=== PATIENT | female | born 1960 | race Caucasian/White ===

== ENCOUNTER → 2016-12-10 | Outpatient (CLI) | payer BC ==
[~2016-12-10] MED LIST: CHOL100027 PO; LISI-725 PO; OMEGCAP2 PO
--- NOTE | 2016-12-10 08:57 | DIAGNOSTIC IMAGING REPORT ---
THYROID ULTRASOUND CLINICAL HISTORY: THYROID MASS, THYROMEGALY COMPARISON STUDY: None. TECHNIQUE: Sonography of the thyroid gland was performed. FINDINGS: The thyroid gland is mildly enlarged and heterogeneous. The right lobe measures 5.3 x 2.1 x 1.8 cm and the left lobe measures 5.2 x 1.7 x 2 cm. The isthmus measures 0.6 cm in thickness. Differentiation between heterogeneous parenchyma and thyroid nodules is difficult but no definite nodules are identified. IMPRESSION: 1. Mildly enlarged, heterogeneous thyroid gland. 2. No discrete thyroid nodules identified. Electronically signed by: David Thapa M.D. 12/10/2016 8:56 AM Dictated Date/Time: 12/10/2016 8:55 AM
== END | disposition home or self-care (01) ==
LOC: C.ULTR 08:31
PROVIDERS: ATTEND Physician Assistant
DX: E04.1 Nontoxic single thyroid nodule (principal)

== ENCOUNTER 2023-04-17 12:30 | Inpatient (IN) ==
[2023-04-17] MEDS ORDERED: fentaNYL citrate PF 100 MCG/2 ML VIAL IV STA (12:42)
--- NOTE | 2023-04-17 12:45 | Emergency Department Note ---
Impression & Plan Abdominal pain, left upper quadrant, Elevated procalcitonin, Leukocytosis, Non- ST elevation [place] (NSTEMI) ED Provider Note HISTORY OF PRESENT ILLNESS: Patient is a 63-year-old female presenting with acute onset of left upper quadrant abdominal pain. Patient reports that the pain started acutely early this morning when her was attempting to lift her up to transfer her. Tad ewing describes the pain as sharp in nature and constant since onset. She reports of associated shortness of breath. Denies any chest pain. Denies any nausea or vomiting. Does report an episode of diarrhea with some blood in it earlier today. She is on anticoagulation for previous history of blood clot. Reports her legs have been very swollen over the last few days but she has been taking her Lasix as prescribed. Denies any fevers. Patient denies any falls or trauma to the abdomen or left chest. ROS: as above PHYSICAL EXAM: Constitutional: Patient appears in no acute distress. HENT: Head: Normocephalic and atraumatic. Eyes: EOMI, PERRL Mouth/Throat: Mucous membranes moist. Neck: Trachea midline. Neck supple. Cardiovascular: RRR, No murmurs, rubs or gallops. Intact distal pulses. Pulmonary/Chest: No respiratory distress. Breath sounds clear and equal bilaterally. No wheezes or rales. Abdominal: Abdomen soft, no rebound or guarding. LUQ TTP Musculoskeletal: No tenderness or deformity noted. +3 pitting edema bilaterally extending above knees. Skin: Warm and dry. No rash, erythema, pallor or cyanosis Psychiatric: Appropriate mood and affect for situation. Neurological: Alert and keenly responsive. CN II-XII grossly intact, moving all extremities equally and fully. MDM: - Vitals signs stable. - History obtained via patient. Patient presents with left upper quadrant abdominal pain. Patient reports that earlier this morning she started having significant pain in her left upper quadrant while her was helping to get her up out of a chair. Describes the pain as sharp and constant in nature. Reports associated shortness of breath. Denies any chest pain, nausea or vomiting. Does report some diarrhea with some blood tinge to earlier today. She is on anticoagulation for history of blood clot. - Chronic conditions affecting care: renal cell carcinoma - Differential diagnoses include, but are not limited to: splenic infarction; pneumonia; diverticulitis; ACS; pulmonary edema - Order placed for continuous cardiac monitoring. At this time, monitor showed rate of 94 bpm with normal sinus rhythm, per my interpretation. - External medical records reviewed. EMS run sheet was reviewed. Patient was given 50 mcg of IV fentanyl for pain management prehospital. - EKG reviewed by myself showed normal sinus rhythm. Rate 96 bpm. QTc 396. No acute ischemic changes. - Laboratory workup interpreted by myself showed leukocytosis (WBC 16.15) with left shift; elevated procalcitonin (3.29); elevated creatinine (Cr 1.26); elevated lactate (3.2); elevated troponin (14.5); transaminitis (AST 264; ALT 126); normal lipase; normal BNP - CXR negative for pneumonia, per my interpretation - CT abdomen/pelvis with IV contrast showed large heterogeneous right renal mass consistent with RCC. Also noted to have large hepatic metastases with the left lobe lesion increased in size with evidence of central necrosis. - Patient given 50 mcg IV fentanyl in ER. - Given 2L NS for sepsis coverage based on ideal body weight. - IV vancomycin and cefepime ordered, given leukocytosis and elevated procalcitonin - Transaminitis likely secondary to liver metastases. - UA ordered - Discussion was had with rn social work about patient's case and need for admission - Hospitalist consulted for admission - [facility] for further evaluation and management. 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 Beliefs That Will Affect Care: None Current Living Situation: Spouse Feels Safe at Home: Yes Assistive Devices: None Allergies Allergies Allergy/AdvReac Type Severity Reaction Status Date / Time No Known Allergies Allergy Unverified 04/05/23 19:16 Home Meds Home Medications Medication Instructions Recorded Confirmed multivitamin 1 tab PO DAILY 04/05/23 04/17/23 timolol maleate 0.5 % eye drops 1 drp OPB QAM 04/05/23 04/17/23 apixaban 5 mg (74 tabs) tablets in See Rx Instructions .Route .COMPLEX 04/17/23 04/17/23 a dose pack (Eliquis) atorvastatin 10 mg tablet 10 mg PO HS 04/17/23 04/17/23 furosemide 40 mg tablet 40 mg PO DAILY PRN Fluid Retention 04/17/23 04/17/23 lisinopril 10 mg tablet 10 mg PO QAM 04/17/23 04/17/23 Previous Rx's Medication Instructions Recorded oxycodone 5 mg tablet 5 mg PO DAILY PRN pain #7 tabs 03/30/23 Results & Data (ED) Vital Signs Vital Signs - 24 hr 04/17/23 12:50 04/17/23 13:08 04/17/23 12:44 Temperature 37.0 C Temperature Source Oral Pulse Rate 103 H 96 H 99 H Pulse Rate from SpO2 Sensor 99 H Respiratory Rate 21 27 H Blood Pressure 120/63 Blood Pressure Mean 82 Blood Pressure Position Semi-fowlers Pulse Oximetry 96 94 Oxygen Delivery Method Room Air Sepsis Recent Fever Within 48 Hours No Sepsis New/Unexplained Change in Mental Status N/A Sepsis Action Taken by Nursing Physician Notified 04/17/23 13:00 04/17/23 13:18 04/17/23 13:30 Temperature Temperature Source Pulse Rate 96 H 96 H 95 H Pulse Rate from SpO2 Sensor 95 H 95 H 95 H Respiratory Rate 27 H 29 H 30 H Blood Pressure 116/64 Blood Pressure Mean 81 Blood Pressure Position Pulse Oximetry 96 93 94 Oxygen Delivery Method Sepsis Recent Fever Within 48 Hours Sepsis New/Unexplained Change in Mental Status Sepsis Action Taken by Nursing 04/17/23 14:27 04/17/23 14:29 04/17/23 14:29 Temperature Temperature Source Pulse Rate 97 H 93 H Pulse Rate from SpO2 Sensor 93 H Respiratory Rate 31 H 24 Blood Pressure 127/59 L Blood Pressure Mean 78 Blood Pressure Position Pulse Oximetry 98 Oxygen Delivery Method Sepsis Recent Fever Within 48 Hours Sepsis New/Unexplained Change in Mental Status Sepsis Action Taken by Nursing 04/17/23 14:30 04/17/23 14:30 04/17/23 15:00 Temperature Temperature Source Pulse Rate 95 H Pulse Rate from SpO2 Sensor 94 H Respiratory Rate 28 H Blood Pressure 119/62 133/77 Blood Pressure Mean 80 94 Blood Pressure Position Pulse Oximetry 96 Oxygen Delivery Method Sepsis Recent Fever Within 48 Hours Sepsis New/Unexplained Change in Mental Status Sepsis Action Taken by Nursing 04/17/23 15:00 04/17/23 15:30 04/17/23 15:33 Temperature Temperature Source Pulse Rate 99 H 99 H 96 H Pulse Rate from SpO2 Sensor 98 H 99 H 96 H Respiratory Rate 26 H 30 H 19 Blood Pressure 119/53 L Blood Pressure Mean 75 Blood Pressure Position Pulse Oximetry 97 98 96 Oxygen Delivery Method Sepsis Recent Fever Within 48 Hours Sepsis New/Unexplained Change in Mental Status Sepsis Action Taken by Nursing 04/17/23 16:07 Temperature Temperature Source Pulse Rate 99 H Pulse Rate from SpO2 Sensor 292 H Respiratory Rate 29 H Blood Pressure 116/43 L Blood Pressure Mean 67 Blood Pressure Position Pulse Oximetry 96 Oxygen Delivery Method Sepsis Recent Fever Within 48 Hours Sepsis New/Unexplained Change in Mental Status Sepsis Action Taken by Nursing Laboratory Data 04/17/23 12:49 04/17/23 12:49 Lab Results 04/17/23 04/17/23 04/17/23 Range/Units 12:49 12:49 12:49 WBC 16.15 H (4.8-10.8) K/ul RBC 2.89 L (4.20-5.40) M/uL Hgb 7.8 L (12.0-16.0) g/dl Hct 25.9 L (37.0-47.0) % MCV 89.6 (80.0-100.0) fL MCH 27.0 (25.0-34.0) pg MCHC 30.1 L (32.0-36.0) g/dL RDW Std Deviation 61.2 H (36.4-46.3) fL RDW Coeff of Eda 18.7 H (11.5-14.5) % Plt Count 418 H (130-400) K/uL MPV 9.8 (9.4-12.4) fL Immature Gran % (Auto) 6.4 % Neut % (Auto) 77.4 % Lymph % (Auto) 8.2 % Lee % (Auto) 7.2 % Eos % (Auto) 0.5 % Baso % (Auto) 0.3 % Neut # (Auto) 12.49 H (1.40-6.50) K/uL Lymph # (Auto) 1.33 (1.20-3.40) K/uL Lee # (Auto) 1.17 H (0.11-0.59) K/uL Eos # (Auto) 0.08 (0.00-0.50) K/uL Baso # (Auto) 0.05 (0.00-0.20) K/uL Immature Gran # (Auto) 1.03 H (0.01-0.20) K/uL Echinocytes 1+ Rouleaux 1+ Sodium 137 (136-145) mmol/L Potassium 4.7 (3.5-5.1) mmol/L Chloride 109 H (98-107) mmol/L Carbon Dioxide 22 (21-32) mmol/L Anion Gap 6 (3-11) BUN 32 H (6-23) mg/dl Creatinine 1.26 H (0.6-1.2) mg/dl Est Cr Clr Drug Dosing 66.2 ml/min Est GFR ( Amer) 53.3 ml/min Est GFR (Non-Af Amer) 45.9 ml/min BUN/Creatinine Ratio 25.4 H (10-20) Glucose 128 H (70-99(Fasting)) mg/dl Lactate 3.2 H* (0.4-2.0) mmol/L Calcium 10.8 H (8.6-10.3) mg/dl Total Bilirubin 0.7 (0.2-1.0) mg/dl AST 264 H (13-39) U/L ALT 126 H (7-52) U/L Alkaline Phosphatase 363 H (34-104) U/L Troponin I High Sens 14.5 H (0-14) pg/ml B-Natriuretic Peptide (0-100) pg/ml Total Protein 6.0 (6.0-8.3) gm/dl Albumin 2.6 L (3.4-5.0) gm/dl Globulin 3.4 (2.5-4.0) gm/dl Albumin/Globulin Ratio 0.8 L (0.9-2) Lipase 15 (11-82) U/L Procalcitonin (0-0.5) ng/ml 04/17/23 04/17/23 Range/Units 12:49 14:14 WBC (4.8-10.8) K/ul RBC (4.20-5.40) M/uL Hgb (12.0-16.0) g/dl Hct (37.0-47.0) % MCV (80.0-100.0) fL MCH (25.0-34.0) pg MCHC (32.0-36.0) g/dL RDW Std Deviation (36.4-46.3) fL RDW Coeff of Eda (11.5-14.5) % Plt Count (130-400) K/uL MPV (9.4-12.4) fL Immature Gran % (Auto) % Neut % (Auto) % Lymph % (Auto) % Lee % (Auto) % Eos % (Auto) % Baso % (Auto) % Neut # (Auto) (1.40-6.50) K/uL Lymph # (Auto) (1.20-3.40) K/uL Lee # (Auto) (0.11-0.59) K/uL Eos # (Auto) (0.00-0.50) K/uL Baso # (Auto) (0.00-0.20) K/uL Immature Gran # (Auto) (0.01-0.20) K/uL Echinocytes Rouleaux Sodium (136-145) mmol/L Potassium (3.5-5.1) mmol/L Chloride (98-107) mmol/L Carbon Dioxide (21-32) mmol/L Anion Gap (3-11) BUN (6-23) mg/dl Creatinine (0.6-1.2) mg/dl Est Cr Clr Drug Dosing ml/min Est GFR ( Amer) ml/min Est GFR (Non-Af Amer) ml/min BUN/Creatinine Ratio (10-20) Glucose (70-99(Fasting)) mg/dl Lactate (0.4-2.0) mmol/L Calcium (8.6-10.3) mg/dl Total Bilirubin (0.2-1.0) mg/dl AST (13-39) U/L ALT (7-52) U/L Alkaline Phosphatase (34-104) U/L Troponin I High Sens (0-14) pg/ml B-Natriuretic Peptide 85 (0-100) pg/ml Total Protein (6.0-8.3) gm/dl Albumin (3.4-5.0) gm/dl Globulin (2.5-4.0) gm/dl Albumin/Globulin Ratio (0.9-2) Lipase (11-82) U/L Procalcitonin 3.29 H (0-0.5) ng/ml Administered Medications Vancomycin HCl 2,500 mg/ (Sodium Chloride) 550 mls @ 200 mls/hr IV NOW ONE Stop: 04/17/23 17:59 Last Admin: 04/17/23 16:05 Dose: 200 mls/hr Documented By: BMK Discontinued Medications Fentanyl Citrate (Fentanyl Citrate Pf 100 Mcg/2 Ml Vial) 50 mcg IV NOW STA Stop: 04/17/23 12:43 Last Admin: 04/17/23 13:01 Dose: 50 mcg Documented By: AB Sodium Chloride (Nss) 1,000 mls @ 999 mls/hr IV .Q1H1M ONE Stop: 04/17/23 14:06 Last Infusion: 04/17/23 14:56 Dose: 0 mls/hr Documented By: Admin: 04/17/23 13:20 Dose: 999 mls/hr Documented By: AB Cefepime HCl (Maxipime) 2,000 mg in 20 mls @ 5 mls/min IV NOW STA; Protocol Stop: 04/17/23 15:18 Last Admin: 04/17/23 15:43 Dose: 5 mls/min Documented By: AB Sodium Chloride (Nss) 1,000 mls @ 999 mls/hr IV .Q1H1M ONE Stop: 04/17/23 16:35 Last Admin: 04/17/23 15:36 Dose: 999 mls/hr Documented By: AB Ioversol (Optiray 320 100ml) 94 ml IV ONCE ONE Stop: 04/17/23 13:58 Last Admin: 04/17/23 13:58 Dose: 94 ml Documented By: DENIS Imaging Data Radiologist's Impression: Abdomen/Pelvis CT 04/17/23 12:42 CT SCAN OF THE ABDOMEN AND PELVIS WITH IV CONTRAST CLINICAL HISTORY: Left upper quadrant abdominal pain. COMPARISON STUDY: Prior abdominal CT scans, most recently dated 04/05/2023. TECHNIQUE: Following the IV administration of 94 cc of Optiray 320, CT scan of the abdomen and pelvis is performed from the lung bases to the proximal femora. Images are reviewed in the axial, sagittal, and coronal planes. IV contrast was administered without complication. A dose lowering technique was utilized adhering to the principles of ALARA. The examination is degraded by large body habitus, and by streak artifact from the body wall abutting the CT gantry. There is also motion artifact. CT DOSE: 1591.82 mGy.cm FINDINGS: Lung bases: The heart is normal in size and without pericardial effusion. Trace pleural fluid is seen on the right. The lung bases are otherwise clear noting bibasilar atelectasis. There is a small hiatal hernia. Liver: The contrast-enhanced liver is markedly enlarged and heterogeneous, measuring 25.8 cm in length. Attenuation is diffusely diminished indicating steatosis. Nodularity of the hepatic surface contour indicates morphologic change of cirrhosis. There is no intrahepatic biliary ductal dilatation. The hepatic veins and portal veins are patent. A large enhancing hepatic mass is seen spanning the right and left lobes on axial image #107. This measures approximately 13 x 9.5 cm in axial dimension. Additional enhancing mass lesions are identified in the right lobe, and this is consistent with metastatic disease. The left lobe is markedly enlarged, and the left lobe lesion has significantly increased in size and shows increase in necrosis from previous. The additional hepatic lesions also show increasing necrosis. Gallbladder: Unremarkable. Spleen: The spleen is enlarged measuring 15.1 cm in length. Pancreas: Unremarkable. Adrenal glands: Unremarkable. Kidneys: The contrast enhanced kidneys are normal in size and without hydronephrosis. The kidneys enhance symmetrically. A large and heterogeneously enhancing mass lesion is again seen arising from the interpolar right kidney. This measures 8.6 x 8.4 x 7.5 cm as seen on image #237. This likely invades the renal pelvis No enhancing cortical mass is identified in the left kidney. Abdominal vasculature: The abdominal aorta is normal in course and caliber. Thrombus is again seen in the IVC on axial image #185. Bowel: There are scattered colonic diverticula without CT evidence of acute diverticulitis. No bowel obstruction is seen. The appendix is normal as visualized. Peritoneum: There is a small volume of perihepatic and pelvic ascites. This is increased from previous. No intraperitoneal free air is seen. Lymphadenopathy: None. Pelvic viscera: The bladder is normal as visualized. Uterine fibroids are observ ed. No adnexal lesion is seen. Skeletal structures: The skeletal structures are osteopenic. There is mild to moderate lumbosacral spondylosis. No lytic or blastic lesions are seen. Soft tissues: There is body wall edema. IMPRESSION: 1. Again seen is a large heterogeneous right renal mass consistent with a renal cell carcinoma. 2. The liver is enlarged, steatotic, and shows morphologic changes of cirrhosis. 3. Large hepatic metastases are again noted. The left lobe lesion has significantly increased in size from recent prior examinations and shows increasing central necrosis. This may represent the etiology of left upper qu adrant pain and clinical correlation will be required. Additional hepatic metastases also show increased size and central necrosis from previous. 4. Thrombus is again seen within the inferior vena cava. This could represent bland versus tumor thrombus. 5. There is a small volume of abdominopelvic ascites. This is increased from previous. 6. Trace right pleural effusion. 7. Additional findings as above. ACT 112: Negative or not required by law. Electronically signed by: Bib Steiner M.D. 04/17/2023 3:29 PM Chest X-Ray 04/17/23 12:42 XR chest 1V portable CLINICAL HISTORY: shortness of breath TECHNIQUE: Single frontal radiograph of the chest was obtained. Comparison: Comparison is made to chest radiograph 04/05/2020 FINDINGS: No lines and tubes are seen. The cardiomediastinal silhouette is normal. Lungs are underinflated but clear. No evidence of pleural effusion or pneumothorax. IMPRESSION: No acute abnormalities and in particular no radiographic evidence of pneumonia. ACT 112: Negative or not required by law. Electronically signed by: Mahendra Zhang M.D. 04/17/2023 1:13 PM Discharge Plan Visit Data Chief Complaint: Abdominal Pain Stated Complaint: Abdominal pain ED Provider: Chantal Brunson Discharge Problem: Abdominal pain, left upper quadrant, Elevated procalcitonin, Leukocytosis, Non- ST elevation [place] (NSTEMI) Forms Stand Alone Forms: [facility] [employer] Prescriptions Prescriptions: No Action oxycodone 5 mg tablet 5 mg PO DAILY PRN (Reason: pain) Qty: 7 0RF furosemide 40 mg tablet 40 mg PO DAILY PRN (Reason: Fluid Retention) atorvastatin 10 mg tablet 10 mg PO HS lisinopril 10 mg tablet 10 mg PO QAM Eliquis 5 mg (74 tabs) tablets,dose pack See Rx Instructions .ROUTE .COMPLEX Rx Instructions: please take 10mg twice a day for 7 days (until 04/18), then continue 5mg twice a day from 04/19 onwards. timolol maleate 0.5 % drops 1 drp OPB QAM multivitamin Tablet 1 tab PO DAILY Referrals Referrals: Mckenna Leong MD [Primary Care Provider] -
[2023-04-17] MEDS ORDERED: SODIUM CHLORIDE 0.9% 1,000 ML IV ONE ×2 (13:06→15:35)
--- NOTE | 2023-04-17 13:15 | XRay Report ---
XR chest 1V portable CLINICAL HISTORY: shortness of breath TECHNIQUE: Single frontal radiograph of the chest was obtained. Comparison: Comparison is made to chest radiograph 04/05/2020 FINDINGS: No lines and tubes are seen. The cardiomediastinal silhouette is normal. Lungs are underinflated but clear. No evidence of pleural effusion or pneumothorax. IMPRESSION: No acute abnormalities and in particular no radiographic evidence of pneumonia. ACT 112: Negative or not required by law. Electronically signed by: Mahendra Zhang M.D. 04/17/2023 1:13 PM
[2023-04-17 13:24] LABS: Hematocrit (blood only) 25.9 % (37.0-47.0); Hemoglobin 7.8 g/dl (12.0-16.0); Mean Corpuscular Hgb Conc 30.1 g/dL (32.0-36.0); Mean Corpuscular Volume 89.6 fL (80.0-100.0); Mean Platelet Volume 9.8 fL (9.4-12.4); Platelet Count 418 K/uL (130-400); RDW Coefficient of Variation 18.7 % (11.5-14.5); RDW Standard Deviation 61.2 fL (36.4-46.3); Red Blood Count 2.89 M/uL (4.20-5.40); White Blood Count 16.15 K/ul (4.8-10.8)
[2023-04-17 13:31] LABS: Albumin Globulin Ratio 0.8 (0.9-2); Albumin Level 2.6 gm/dl (3.4-5.0); BUN Creatinine Ratio 25.4 (10-20); Bilirubin,Total 0.7 mg/dl (0.2-1.0); Calcium 10.8 mg/dl (8.6-10.3); Creatinine Clr Calc Pharmacy 66.2 ml/min; Est GFR (African American) 53.3 ml/min; Est GFR (Non-African American) 45.9 ml/min; Globulin 3.4 gm/dl (2.5-4.0); Potassium 4.7 mmol/L (3.5-5.1)
[2023-04-17 13:36] LABS: Troponin I High Sensitivity 14.5 pg/ml (0-14)
[2023-04-17 13:53] LABS: Basophils # (auto) 0.05 K/uL (0.00-0.20); Basophils % (auto) 0.3 %; Echinocytes 1+; Eosinophils # (auto) 0.08 K/uL (0.00-0.50); Eosinophils % (auto) 0.5 %; Immature Granulocytes # (auto) 1.03 K/uL (0.01-0.20); Immature Granulocytes % (auto) 6.4 %; Lymphocytes # (auto) 1.33 K/uL (1.20-3.40); Lymphocytes % (auto) 8.2 %; Monocytes # (auto) 1.17 K/uL (0.11-0.59); Monocytes % (auto) 7.2 %; Neutrophils # (auto) 12.49 K/uL (1.40-6.50); Neutrophils % (auto) 77.4 %; Rouleaux 1+
[2023-04-17] MEDS ORDERED: OPTIRAY 320 100ml IV ONE (13:57)
[2023-04-17] MEDS ORDERED: VANCOMYCIN HCL 2,500 MG in SODIUM CHLORIDE 0.9% 500 ML IV ONE (15:15)
[2023-04-17] MEDS ORDERED: CEFEPIME 2,000 MG/20 ML VIAL IV STA (15:15)
[2023-04-17] MEDS ORDERED: VANCOMYCIN CONSULT ACTIVE PRN (15:15)
--- NOTE | 2023-04-17 15:30 | CT Scan Report ---
CT SCAN OF THE ABDOMEN AND PELVIS WITH IV CONTRAST CLINICAL HISTORY: Left upper quadrant abdominal pain. COMPARISON STUDY: Prior abdominal CT scans, most recently dated 04/05/2023. TECHNIQUE: Following the IV administration of 94 cc of Optiray 320, CT scan of the abdomen and pelvi s is performed from the lung bases to the proximal femora. Images are reviewed in the axial, sagittal , and coronal planes. IV contrast was administered without complication. A dose lowering technique wa s utilized adhering to the principles of ALARA. The examination is degraded by large body habitus, an d by streak artifact from the body wall abutting the CT gantry. There is also motion artifact. CT DOSE: 1591.82 mGy.cm FINDINGS: Lung bases: The heart is normal in size and without pericardial effusion. Trace pleural fluid is seen on the right. The lung bases are otherwise clear noting bibasilar atelectasis. There is a small hiat al hernia. Liver: The contrast-enhanced liver is markedly enlarged and heterogeneous, measuring 25.8 cm in lengt h. Attenuation is diffusely diminished indicating steatosis. Nodularity of the hepatic surface contou r indicates morphologic change of cirrhosis. There is no intrahepatic biliary ductal dilatation. The hepatic veins and portal veins are patent. A large enhancing hepatic mass is seen spanning the right and left lobes on axial image #107. This measures approximately 13 x 9.5 cm in axial dimension. Addit ional enhancing mass lesions are identified in the right lobe, and this is consistent with metastatic disease. The left lobe is markedly enlarged, and the left lobe lesion has significantly increased in size and shows increase in necrosis from previous. The additional hepatic lesions also show increasi ng necrosis. Gallbladder: Unremarkable. Spleen: The spleen is enlarged measuring 15.1 cm in length. Pancreas: Unremarkable. Adrenal glands: Unremarkable. Kidneys: The contrast enhanced kidneys are normal in size and without hydronephrosis. The kidneys enh ance symmetrically. A large and heterogeneously enhancing mass lesion is again seen arising from the interpolar right kidney. This measures 8.6 x 8.4 x 7.5 cm as seen on image #237. This likely invades the renal pelvis No enhancing cortical mass is identified in the left kidney. Abdominal vasculature: The abdominal aorta is normal in course and caliber. Thrombus is again seen in the IVC on axial image #185. Bowel: There are scattered colonic diverticula without CT evidence of acute diverticulitis. No bowel obstruction is seen. The appendix is normal as visualized. Peritoneum: There is a small volume of perihepatic and pelvic ascites. This is increased from previou s. No intraperitoneal free air is seen. Lymphadenopathy: None. Pelvic viscera: The bladder is normal as visualized. Uterine fibroids are observed. No adnexal lesion is seen. Skeletal structures: The skeletal structures are osteopenic. There is mild to moderate lumbosacral sp ondylosis. No lytic or blastic lesions are seen. Soft tissues: There is body wall edema. IMPRESSION: 1. Again seen is a large heterogeneous right renal mass consistent with a renal cell carcinoma. 2. The liver is enlarged, steatotic, and shows morphologic changes of cirrhosis. 3. Large hepatic metastases are again noted. The left lobe lesion has significantly increased in size from recent prior examinations and shows increasing central necrosis. This may represent the etiolog y of left upper quadrant pain and clinical correlation will be required. Additional hepatic metastase s also show increased size and central necrosis from previous. 4. Thrombus is again seen within the inferior vena cava. This could represent bland versus tumor thro mbus. 5. There is a small volume of abdominopelvic ascites. This is increased from previous. 6. Trace right pleural effusion. 7. Additional findings as above. ACT 112: Negative or not required by law. Electronically signed by: Bib Steiner M.D. 04/17/2023 3:29 PM
[2023-04-17] MEDS ORDERED: HYDROmorphone INJ 1 MG/ML SYRINGE IV STA (16:34)
[2023-04-17] MEDS ORDERED: FUROSEMIDE 40 MG/4 ML VIAL IV SCH (17:25)
[2023-04-17 18:00] LABS: Appearance Urine Cloudy (Clear); Bacteria Urine Automated Negative (Negative); Bilirubin Urine Negative (Negative); Blood Urine Trace (Negative); Color Urine Yellow; Epithelial Cell Urine Auto 0-5 /lpf (0-5); Glucose Urine UA Negative (Negative); Ketones Urine Negative (Negative); Leukocyte Esterase Urine Negative (Negative); Nitrite Urine Negative (Negative); Protein Urine 1+ (Negative); RBC Urine Automated 0-4 /hpf (0-4); Specific Gravity Urine 1.018 (1.000-1.030); Urobilinogen Urine Negative (Negative); WBC Urine Automated 0 /hpf (0-5)
[2023-04-17 18:19] LABS: Uric Acid Crystals Urine Present (None Prsent)
--- NOTE | 2023-04-17 18:19 | History & Physical Report ---
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 Concern for IVC syndrome - Dr. Varela discussed with Dr. Floyd who recommends transfer to tertiary care center for possible thrombectomy. Called [facility], spoke with Dr. Triana, system triage officer. Vascular surgery currently unavailable due to emergency case and additional cases to follow. Transfer was declined due to vascular's availability. Called [facility] for potential transfer, awaiting call back Started on Eliquis last week, continue 10 mg twice daily until 04/18, then start Eliquis 5 mg twice daily on 04/19 Has been taking Lasix 40 mg PO at home with no improvement Echo 03/2023-EF 55 to 60% Lasix 40 mg IV BID Potts (3) SIRS (systemic inflammatory response syndrome): Plan: In the ED, WBC 16 K, tachycardic, tachypneic. BP on the low side but stable. Initial lactate 3.2, procalcitonin 3.29 Noted leukocytosis since No obvious source of infection at this time S/p Vanco and cefepime in the ED. Will continue empirically with IV Vanco and Zosyn given evidence of liver necrosis on CT. SIRS type picture may be due to underlying malignancy UA Follow blood cultures (4) Metastatic renal cell carcinoma to liver: (5) Cancer related pain: Plan: Following with Dr. Orosco Tentative plans to start palliative Keytruda and axitinib next week Radiation oncology evaluation for possible palliative radiation - discussed with Dr. Orosco who agrees to have patient evaluated but may not be a candidate. Pain management and palliative care consults (6) Chronic anemia: Plan: Baseline Hgb ~ 8.0 Hgb 7.8 today No indication for transfusion at this time, monitor CBC (7) HTN (hypertension): Plan: Hold lisinopril for now (8) Dyslipidemia: Plan: Hold statin for now DVT PROPHYLAXIS On Eliquis Patient seen in collaboration with Dr. Varela. I spent a total of 120 minutes coordinating, documenting, and providing care for this patient excluding time spent in the performance of separately billed services. This included personally reviewing all current laboratories and imaging studies, medication reconciliation, outpatient chart review, and discussion with specialists. 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 History obtained from the patient and review of outpatient PCP and oncology records. Patient recently admitted to [facility] twice this month, 03/28 - 03/30 and 04/05 -04/11. Last admission patient was admitted for SIRS like picture with sepsis ultimately being ruled out and started on Eliquis for IVC thrombosis. Patient following with oncology with tentative plans to start palliative Keytruda and axitinib next week. Patient presenting today with worsening left-sided abdominal pain. States that she took 1 dose of oxycodone last evening and did have some relief. Pain was much worse this morning, she did not take any oxycodone. Patient has had worsening lower extremity edema over the past few weeks, patient now with anasarca extending up to the flank area. Has been taking Lasix at home and has not noted any change in urine output. Patient reports shortness of breath that seems to be associate with episodes of pain. Denies chest pain. No fevers or chills. Denies abdominal pain, nausea, vomiting, diarrhea. No lightheadedness, dizziness, diaphoresis, syncopal events. Denies urinary symptoms. In the ED, labs show WBC 16 K, Hgb 7.8, lactate 3.2, procalcitonin 3.2. Patient is tachycardic and tachypneic with borderline low BPs. CT ABD/pelvis shows worsening liver metastases with areas of liver necrosis. Patient was given IV cefepime, IV Vanco, IVF, IV fentanyl, IV Dilaudid. Allergies Allergy/AdvReac Type Severity Reaction Status Date / Time No Known Allergies Allergy Unverified 04/05/23 19:16 Home Medications Medication Instructions Recorded Confirmed Type oxycodone 5 mg tablet 5 mg PO DAILY PRN pain #7 tabs 03/30/23 04/17/23 Rx multivitamin 1 tab PO DAILY 04/05/23 04/17/23 History timolol maleate 0.5 % eye drops 1 drp OPB QAM 04/05/23 04/17/23 History apixaban 5 mg (74 tabs) tablets in See Rx Instructions .Route .COMPLEX 04/17/23 04/17/23 History a dose pack (Eliquis) atorvastatin 10 mg tablet 10 mg PO HS 04/17/23 04/17/23 History furosemide 40 mg tablet 40 mg PO DAILY PRN Fluid Retention 04/17/23 04/17/23 History lisinopril 10 mg tablet 10 mg PO QAM 04/17/23 04/17/23 History Past Med/Surg History Medical History Chronic anemia Dyslipidemia HTN (hypertension) IVC thrombosis Metastatic renal cell carcinoma to liver Surgical History No pertinent past surgical history Social History Smoking Status: Never smoker Hx Alcohol Use: No Hx Substance Use: No Preferred Language: Irish Communication Ability: Effective Furniture Removalist Required: No Beliefs That Will Affect Care: None Current Living Situation: Spouse Other Information That Helps Us Care for You: No Feels Safe at Home: Yes Safety Concerns: Feels Safe At This Time Assistive Devices: Walker Physical Exam Constitutional: + ill appearing; no acute distress Eyes: PERRL, conjunctivae normal, anicteric sclerae ENMT: external ear and nose normal, oropharynx normal Respiratory: normal respiratory effort, lungs clear to auscultation Cardiovascular: Rate/Rhythm: regular rhythm and + tachycardic Vessels: normal peripheral pulses Extremities: + edema +4 pitting edema to the bilateral lower extremities with evidence of anasarca with edema extending up to the flank Gastrointestinal (Abdomen): Inspection/Auscultation: + abdomen distended (Semi firm with anasarca) Percussion/Palpation: + abdomen tender (Left side abdominal pain present) Skin: scattered pink patches on both feet Neurologic: PERRL, EOMI, accommodation nl, no face palsy, no dysarthria Psychiatric: A+Ox3, euthymic affect Results & Data Results & Data Vital Signs (Past 12 Hours) Vital Signs Temp Pulse Resp BP Pulse Ox O2 Del Method 04/17/23 17:10 96 H 04/17/23 16:07 99 H 29 H 116/43 L 96 04/17/23 15:33 96 H 19 119/53 L 96 04/17/23 15:30 99 H 30 H 98 04/17/23 15:00 99 H 26 H 97 04/17/23 15:00 133/77 04/17/23 14:30 95 H 28 H 96 04/17/23 14:30 119/62 04/17/23 14:29 93 H 24 98 04/17/23 14:29 127/59 L 04/17/23 14:27 97 H 31 H 04/17/23 13:30 95 H 30 H 94 04/17/23 13:18 96 H 29 H 116/64 93 04/17/23 13:00 96 H 27 H 96 04/17/23 12:44 99 H 27 H 94 04/17/23 13:08 96 H 04/17/23 12:50 37.0 C 103 H 21 120/63 96 Room Air Laboratory Results Short CBC 04/17/23 Range/Units 12:49 WBC 16.15 H (4.8-10.8) K/ul Hgb 7.8 L (12.0-16.0) g/dl Hct 25.9 L (37.0-47.0) % Plt Count 418 H (130-400) K/uL BMP 04/17/23 12:49 Sodium 137 Potassium 4.7 Chloride 109 H Carbon Dioxide 22 BUN 32 H Creatinine 1.26 H Glucose 128 H Calcium 10.8 H Liver Function 04/17/23 Range/Units 12:49 Total Bilirubin 0.7 (0.2-1.0) mg/dl AST 264 H (13-39) U/L ALT 126 H (7-52) U/L Alkaline Phosphatase 363 H (34-104) U/L Albumin 2.6 L (3.4-5.0) gm/dl Urine 04/17/23 Range/Units 17:49 Urine Color Yellow Urine Appearance Cloudy A (Clear) Urine pH 5.0 (4.5-7.5) Ur Specific Thorpe 1.018 (1.000-1.030) Urine Protein 1+ H (Negative) Urine Glucose (UA) Negative (Negative) Diagnostic Findings Abdomen/Pelvis CT 04/17/23 12:42 CT SCAN OF THE ABDOMEN AND PELVIS WITH IV CONTRAST CLINICAL HISTORY: Left upper quadrant abdominal pain. COMPARISON STUDY: Prior abdominal CT scans, most recently dated 04/05/2023. TECHNIQUE: Following the IV administration of 94 cc of Optiray 320, CT scan of the abdomen and pelvis is performed from the lung bases to the proximal femora. Images are reviewed in the axial, sagittal, and coronal planes. IV contrast was administered without complication. A dose lowering technique was utilized adhering to the principles of ALARA. The examination is degraded by large body habitus, and by streak artifact from the body wall abutting the CT gantry. There is also motion artifact. CT DOSE: 1591.82 mGy.cm FINDINGS: Lung bases: The heart is normal in size and without pericardial effusion. Trace pleural fluid is seen on the right. The lung bases are otherwise clear noting bibasilar atelectasis. There is a small hiatal hernia. Liver: The contrast-enhanced liver is markedly enlarged and heterogeneous, measuring 25.8 cm in length. Attenuation is diffusely diminished indicating steatosis. Nodularity of the hepatic surface contour indicates morphologic change of cirrhosis. There is no intrahepatic biliary ductal dilatation. The hepatic veins and portal veins are patent. A large enhancing hepatic mass is seen spanning the right and left lobes on axial image #107. This measures approximately 13 x 9.5 cm in axial dimension. Additional enhancing mass lesions are identified in the right lobe, and this is consistent with metastatic disease. The left lobe is markedly enlarged, and the left lobe lesion has significantly increased in size and shows increase in necrosis from previous. The additional hepatic lesions also show increasing necrosis. Gallbladder: Unremarkable. Spleen: The spleen is enlarged measuring 15.1 cm in length. Pancreas: Unremarkable. Adrenal glands: Unremarkable. Kidneys: The contrast enhanced kidneys are normal in size and without hydronephrosis. The kidneys enhance symmetrically. A large and heterogeneously enhancing mass lesion is again seen arising from the interpolar right kidney. This measures 8.6 x 8.4 x 7.5 cm as seen on image #237. This likely invades the renal pelvis No enhancing cortical mass is identified in the left kidney. Abdominal vasculature: The abdominal aorta is normal in course and caliber. Thrombus is again seen in the IVC on axial image #185. Bowel: There are scattered colonic diverticula without CT evidence of acute diverticulitis. No bowel obstruction is seen. The appendix is normal as visualized. Peritoneum: There is a small volume of perihepatic and pelvic ascites. This is increased from previous. No intraperitoneal free air is seen. Lymphadenopathy: None. Pelvic viscera: The bladder is normal as visualized. Uterine fibroids are observed. No adnexal lesion is seen. Skeletal structures: The skeletal structures are osteopenic. There is mild to moderate lumbosacral spondylosis. No lytic or blastic lesions are seen. Soft tissues: There is body wall edema. IMPRESSION: 1. Again seen is a large heterogeneous right renal mass consistent with a renal cell carcinoma. 2. The liver is enlarged, steatotic, and shows morphologic changes of cirrhosis. 3. Large hepatic metastases are again noted. The left lobe lesion has significantly increased in size from recent prior examinations and shows increasing central necrosis. This may represent the etiology of left upper quadrant pain and clinical correlation will be required. Additional hepatic metastases also show increased size and central necrosis from previous. 4. Thrombus is again seen within the inferior vena cava. This could represent bland versus tumor thrombus. 5. There is a small volume of abdominopelvic ascites. This is increased from previous. 6. Trace right pleural effusion. 7. Additional findings as above. ACT 112: Negative or not required by law. Electronically signed by: Bib Steiner M.D. 04/17/2023 3:29 PM Chest X-Ray 04/17/23 12:42 XR chest 1V portable CLINICAL HISTORY: shortness of breath TECHNIQUE: Single frontal radiograph of the chest was obtained. Comparison: Comparison is made to chest radiograph 04/05/2020 FINDINGS: No lines and tubes are seen. The cardiomediastinal silhouette is normal. Lungs are underinflated but clear. No evidence of pleural effusion or pneumothorax. IMPRESSION: No acute abnormalities and in particular no radiographic evidence of pneumonia. ACT 112: Negative or not required by law. Electronically signed by: Mahendra Zhang M.D. 04/17/2023 1:13 PM Code Status & VTE Plan VTE Prophylaxis Plan VTE Prophylaxis will be ordered: No Supervising Physician Co-Signing Physician Notes I have seen and examined the patient and have discussed the case with the provider above. I agree with the assessment and plan as stated. 63 yo F with worsening anasarca since recent discharge. She continues on anticoagulation wtih apixaban wrapping up her first week load. Her epigastric tenderness is significant and limiting her ability to move very much at all. She is mentating clearly and expresses a desire for treatment as does her who is at bedside. She has developed an intermittent red, painful rash on her feet in the last week,also. Labwork reveals a worsening transaminitis since she was discharged less than one week ago. No bleeding noted. She has a poor appetite. Oral lasix medication was given by the patient's PCP, but this has not been helpful. Oral oxycodone did control her pain the most effectively. She is starting treatment as noted above, which is planned for next week. On exam she is morbidly obese and in moderate distress with intermittent severe distress 2/2 epigastric abdominal pain. Abdomen is very tender, but otherwise soft. She has 3+ pitting edema from her feet to her mid abdomen. She is morbidly obese. There is an erythematous patchy rash over her feet that is raised, itchy and painful. This has just come up in the past few days, also. Labs/Imaging/EKG reviewed. WBC consistently 16K, Hb 7.8, Hct 26, PLT 418. BUN 32, creat 1.26 baseline normal creatinine. Down from creat of 1.5 on 04/11 (discharge). Lactate elevated to 3.2, downtrending to 2.6-->2.5. Ca to 10.8, AST 264 (from 131 a few days ago), ALT 126 (from 61). Yeast and crystals in her UA without evidence of bacterial infection. 1. Anasarca 2. 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 SIRS ongoing 2/2 malignancy, now with evidence of central necrosis of liver tumor on imaging 4. Metastatic renal cell carcinoma to liver. 5. Chronic anemia-multifactorial 6. Morbid obesity The patient's goals are to try treatment and her supports this. She has been in and out of the hospital this month for various complications, and has not been home long enough to start medical therapy for this cancer. She now has a worsening lower body anasarca suspicious for a worsening IVC syndrome given her rapid deterioration in recent days, and severe epigastric abdominal pain. Thrombus treatment has been started with apixaban last week. She has an improving creatinine. Her CXR is clear, however, she is short of breath partly from her pain and partly from her rapid fluid accumulation recently. The fact that her CXR is clear, and her recent echocardiogram is normal also supports hypervolemia not of cardiac origin, possibly IVC blockage from the tumor and thrombus. I contacted [facility] whose vascular surgeon was unable to take the case given the high patient load. I contacted [facility] and discussed the case with Dr. Camp-Hospitalist, and Dr. Marci Roberson-Vascular Surg. We decided that given [facility]'s access to multiple specialists that are not available at [facility] including IR, vascular surgery, oncology, etc, she will transfer to [facility] for a multi- specialty opinion. It was communicated with the patient and her by jamey ne who both verbally agreed with the transfer, that there was no guarantee [facility] physicians would do anything differently from [facility] staff. However, this is an opportunity to have the evaluation with everyone together for the best plan possible after her deteriorated state on where to go next, including a possible evaluation by a vascular surgeon with this concern for possible IVC syndrome. The patient and her both agreed and she was transferred via ground ACLS to [facility] IMC unit. DO Avery
[2023-04-17] MEDS ORDERED: PIPERACILLIN/TAZOBACTAM 4.5 GM in DEXTROSE 5% MINI-B 100 ML IV STA (18:20)
[2023-04-17] MEDS ORDERED: ACETAMINOPHEN 325 MG TAB PO PRN (19:14)
[2023-04-17] MEDS ORDERED: HYDROmorphone INJ 0.5 MG/0.5 ML SYR IV PRN (19:14)
[2023-04-17] MEDS ORDERED: oxyCODONE HCL IR 5 MG TAB (IMMEDIATE RELEASE) PO PRN (19:14)
[2023-04-17] MEDS ORDERED: APIXABAN 5 MG TABLET PO SCH (21:00)
--- NOTE | 2023-04-17 22:41 | Communication Note ---
Date of Service: April 17, 2023 Current Inpatient Medications Acetaminophen (Acetaminophen 325 Mg Tab) 650 mg PO Q4H PRN PRN Reason: Pain or Fever Stop: 05/17/23 19:13 Last Admin: 04/17/23 22:34 Dose: 650 mg Apixaban (Apixaban 5 Mg Tablet) 10 mg PO BID [facility] Stop: 04/18/23 21:01 Last Admin: 04/17/23 20:58 Dose: 10 mg Apixaban (Apixaban 5 Mg Tablet) 5 mg PO BID [facility] Stop: 05/19/23 08:59 Furosemide (Furosemide 40 Mg/4 Ml Vial) 40 mg IV BID17 [facility] Stop: 05/17/23 17:24 Last Admin: 04/17/23 17:52 Dose: 40 mg Hydromorphone HCl (Hydromorphone Inj 0.5 Mg/0.5 Ml Syr) 0.5 mg IV Q6H PRN PRN Reason: severe pain Stop: 05/01/23 19:13 Piperacillin Sod/Tazobactam (Sod 4.5 gm/ Dextrose) 100 mls @ 25 mls/hr IV Q8H [facility]; Protocol Stop: 04/28/23 01:59 Miscellaneous Information (Vancomycin Consult Active) 1 each N/A UD PRN PRN Reason: Consult Stop: 05/17/23 15:14 Oxycodone HCl (Oxycodone Hcl Ir 5 Mg Tab (Immediate Release)) 5 mg PO Q6H PRN PRN Reason: moderate pain Stop: 05/01/23 19:13 Timolol Maleate (Timolol Maleate 0.5% Op Soln 5 Ml Btl) 1 drops OPB QAM [facility] Stop: 05/18/23 08:59
--- NOTE | 2023-04-17 22:42 | Discharge Summary ---
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 History obtained from the patient and review of outpatient PCP and oncology records. Patient recently admitted to [facility] twice this month, 03/28 - 03/30 and 04/05 -04/11. Last admission patient was admitted for SIRS like picture with sepsis ultimately being ruled out and started on Eliquis for IVC thrombosis. Patient following with oncology with tentative plans to start palliative Keytruda and axitinib next week. Patient presenting today with worsening left-sided abdominal pain. States that she took 1 dose of oxycodone last evening and did have some relief. Pain was much worse this morning, she did not take any oxycodone. Patient has had worsening lower extremity edema over the past few weeks, patient now with anasarca extending up to the flank area. Has been taking Lasix at home and has not noted any change in urine output. Patient reports shortness of breath that seems to be associate with episodes of pain. Denies chest pain. No fevers or chills. Denies abdominal pain, nausea, vomiting, diarrhea. No lightheadedness, dizziness, diaphoresis, syncopal events. Denies urinary symptoms. In the ED, labs show WBC 16 K, Hgb 7.8, lactate 3.2, procalcitonin 3.2. Patient is tachycardic and tachypneic with borderline low BPs. CT ABD/pelvis shows worsening liver metastases with areas of liver necrosis. Patient was given IV cefepime, IV Vanco, IVF, IV fentanyl, IV Dilaudid. 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 Concern for IVC syndrome - Dr. Varela discussed with Dr. Floyd who recommends transfer to tertiary care center for possible thrombectomy. Called [facility], spoke with Dr. Triana, system triage officer. Vascular surgery currently unavailable due to emergency case and additional cases to follow. Transfer was declined due to vascular's availability. Called [facility] for potential transfer, awaiting call back Started on Eliquis last week, continue 10 mg twice daily until 04/18, then start Eliquis 5 mg twice daily on 04/19 Has been taking Lasix 40 mg PO at home with no improvement Echo 03/2023-EF 55 to 60% Lasix 40 mg IV BID Potts (3) SIRS (systemic inflammatory response syndrome): In the ED, WBC 16 K, tachycardic, tachypneic. BP on the low side but stable. Initial lactate 3.2, procalcitonin 3.29 Noted leukocytosis since No obvious source of infection at this time S/p Vanco and cefepime in the ED. Will continue empirically with IV Vanco and Zosyn given evidence of liver necrosis on CT. SIRS type picture may be due to underlying malignancy UA Follow blood cultures (4) Metastatic renal cell carcinoma to liver: (5) Cancer related pain: Following with Dr. Orosco Tentative plans to start palliative Keytruda and axitinib next week Radiation oncology evaluation for possible palliative radiation - discussed with Dr. Orosco who agrees to have patient evaluated but may not be a candidate. Pain management and palliative care consults (6) Chronic anemia: Baseline Hgb ~ 8.0 Hgb 7.8 today No indication for transfusion at this time, monitor CBC (7) HTN (hypertension): Hold lisinopril for now (8) Dyslipidemia: Hold statin for now DVT PROPHYLAXIS On Eliquis Patient seen in collaboration with Dr. Varela. I spent a total of 120 minutes coordinating, documenting, and providing care for this patient excluding time spent in the performance of separately billed services. This included personally reviewing all current laboratories and imaging studies, medication reconciliation, outpatient chart review, and discussion with specialists. Updated Medication List Medication Instructions Recorded Confirmed Type oxycodone 5 mg tablet 5 mg PO DAILY PRN pain #7 tabs 03/30/23 04/17/23 Rx multivitamin 1 tab PO DAILY 04/05/23 04/17/23 History timolol maleate 0.5 % eye drops 1 drp OPB QAM 04/05/23 04/17/23 History apixaban 5 mg (74 tabs) tablets in See Rx Instructions .Route .COMPLEX 04/17/23 04/17/23 History a dose pack (Eliquis) atorvastatin 10 mg tablet 10 mg PO HS 04/17/23 04/17/23 History furosemide 40 mg tablet 40 mg PO DAILY PRN Fluid Retention 04/17/23 04/17/23 History lisinopril 10 mg tablet 10 mg PO QAM 04/17/23 04/17/23 History Hospital Stay Data Consultations 04/17/23 16:27 ED Decision to Admit Stat 04/17/23 18:28 Consult Vascular Surgery Routine 04/17/23 19:14 Consult Pain Management Routine Consult Palliative Care Routine Consult Radiation Oncology Routine 04/17/23 21:32 Burn CD for patient Stat Diagnostic Imagining Performed 04/17/23 12:42 CT abd pelvis IV con only Stat Discharge Instructions Given to Patient (Per Discharging Provider) Please followup with your primary care physician after discharge from the hospital. It was a pleasure taking care of you! Please call if you have any questions or problems. You can reach a [facility] hospitalist on duty at [facility] 24 hours a day by calling [phone]. Take care of yourself. Yamilet Varela, DO [facility] Hospitalist Total Time Total Time Spent Total Time Spent (In Minutes): 120 Supervising Physician Co-Signing Physician Notes I have seen and examined the patient and have discussed the case with the provider above. I agree with the assessment and plan as stated. 63 yo F with worsening anasarca since recent discharge. She continues on anticoagulation wtih apixaban wrapping up her first week load. Her epigastric tenderness is significant and limiting her ability to move very much at all. She is mentating clearly and expresses a desire for treatment as does her who is at bedside. She has developed an intermittent red, painful rash on her feet in the last week,also. Labwork reveals a worsening transaminitis since she was discharged less than one week ago. No bleeding noted. She has a poor appetite. Oral lasix medication was given by the patient's PCP, but this has not been helpful. Oral oxycodone did control her pain the most effectively. She is starting treatment as noted above, which is planned for next week. On exam she is morbidly obese and in moderate distress with intermittent severe distress 2/2 epigastric abdominal pain. Abdomen is very tender, but otherwise soft. She has 3+ pitting edema from her feet to her mid abdomen. She is morbidly obese. There is an erythematous patchy rash over her feet that is raised, itchy and painful. This has just come up in the past few days, also. Labs/Imaging/EKG reviewed. WBC consistently 16K, Hb 7.8, Hct 26, PLT 418. BUN 32, creat 1.26 baseline normal creatinine. Down from creat of 1.5 on 04/11 (discharge). Lactate elevated to 3.2, downtrending to 2.6-->2.5. Ca to 10.8, T 264 (from 131 a few days ago), ALT 126 (from 61). Yeast and crystals in her UA without evidence of bacterial infection. 1. Anasarca 2. 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 SIRS ongoing 2/2 malignancy, now with evidence of central necrosis of liver tumor on imaging 4. Metastatic renal cell carcinoma to liver. 5. Chronic anemia-multifactorial 6. Morbid obesity The patient's goals are to try treatment and her supports this. She has been in and out of the hospital this month for various complications, and has not been home long enough to start medical therapy for this cancer. She now has a worsening lower body anasarca suspicious for a worsening IVC syndrome given her rapid deterioration in recent days, and severe epigastric abdominal pain. Thrombus treatment has been started with apixaban last week. She has an improving creatinine. Her CXR is clear, however, she is short of breath partly from her pain and partly from her rapid fluid accumulation recently. The fact that her CXR is clear, and her recent echocardiogram is normal also supports hypervolemia not of cardiac origin, possibly IVC blockage from the tumor and thrombus. I contacted [facility] whose vascular surgeon was unable to take the case given the high patient load. I contacted [facility] and discussed the case with Dr. Camp-Hospitalist, and Dr. Marci Roberson-Vascular Surg. We decided that given [facility]'s access to multiple specialists that are not available at [facility] including IR, vascular surgery, oncology, etc, she will transfer to [facility] for a multi- specialty opinion. It was communicated with the patient and her by phone who both verbally agreed with the transfer, that there was no guarantee [facility] physicians would do anything differently from [facility] staff. However, this is an opportunity to have the evaluation with everyone together for the best plan possible after her deteriorated state on where to go next, including a possible evaluation by a vascular surgeon with this concern for possible IVC syndrome. The patient and her both agreed and she was transferred via ground ACLS to [facility] unit. DO Avery
[2023-04-18] MEDS ORDERED: PIPERACILLIN/TAZOBACTAM 4.5 GM in DEXTROSE 5% MINI-B 100 ML IV SCH (02:00)
--- NOTE | 2023-04-18 08:30 | Communication Note ---
Date of Service: April 18, 2023 pt was discharged prior to being seen.
[2023-04-18] MEDS ORDERED: TIMOLOL MALEATE 0.5% OP SOLN 5 ML BTL OPB SCH (09:00)
--- NOTE | 2023-04-18 14:16 | Electrocardiogram Report ---
Test Reason : Blood Pressure : / mmHG Vent. Rate : 096 BPM Atrial Rate : 096 BPM P-R Int : 136 ms QRS Dur : 082 ms QT Int : 314 ms P-R-T Axes : 013 004 023 degrees QTc Int : 396 ms Normal sinus rhythm Poor R wave progression, consider anterior [place] vs. lead placement vs. LVH Abnormal ECG When compared with ECG of 09-APR-2023 12:35, Premature atrial complexes are no longer Present Confirmed by Chemo Veras ([id number]) on 04/18/2023 2:15:46 PM Referred By: REFERRED SELF Confirmed By:Fransico Veras
[2023-04-19] MEDS ORDERED: APIXABAN 5 MG TABLET PO SCH (09:00)
== END 2023-04-18 03:25 | disposition short-term general hospital (02) | DRG 294 ==
LOC: ED 12:30 → 2E 16:38